=== PATIENT | male | born 1980 | race Caucasian/White ===

== ENCOUNTER 2022-12-15 17:59 | Emergency (ER) | payer BC ==
[2022-12-15] MEDS ORDERED: PANTOPRAZOLE 40 MG INJ ONE ×2 (18:26→21:22)
[2022-12-15] MEDS ORDERED: ONDANSETRON 4 MG/2 ML VIAL ONE ×2 (18:26→21:16)
[2022-12-15 18:45] LABS: Absolute Lymphocytes (CBC) 2.5 K/uL (0.7-4.9); Lymphocytes % 17.6 % (15.3-44.8); MCV 88.7 fL (80-100); RBC Red Blood Cell Count 5.19 M/uL (4.33-5.43)
[2022-12-15 18:45] LABS: Specific Gravity 1.026 (1.005-1.030); Urine Bacteria 20-50 /HPF (<20); Urine Bilirubin NEGATIVE (Negative); Urine Blood Trace (Negative); Urine Clarity Clear (Clear); Urine Color Yellow (Yellow); Urine Glucose NEGATIVE (Negative); Urine Mucus 3+ /HPF (None Seen); Urine Protein 1+ (Negative); Urine Urobilinogen 1+ (Normal); Urine pH 6.5 (5.0-7.0)
[2022-12-15 18:46] LABS: Protime INR 1.1
--- NOTE | 2022-12-15 18:49 | RAD REPORT ---
EXAM DESCRIPTION: RAD - Chest Single View - 12/15/2022 6:44 pm CLINICAL HISTORY: vomiting Chest pain. COMPARISON: <Comparisons> FINDINGS: Portable technique limits examination quality. The lungs are grossly clear. The heart is normal in size. No displaced fractures. IMPRESSION: No acute intrathoracic process suspected.
[2022-12-15 19:04] LABS: Bilirubin Total 0.5 mg/dL (0.2-1.0); Potassium 3.7 mEq/L (3.5-5.1); Troponin High Sensitivity 4.6 pg/mL (<58.9)
[2022-12-15] MEDS ORDERED: NA CHLORIDE 0.9% 50 ML ONE (19:50)
[2022-12-15] MEDS ORDERED: CEFTRIAXONE 1000 MG/VIAL ONE (19:50)
--- NOTE | 2022-12-15 19:52 | RAD REPORT ---
EXAM DESCRIPTION: US - Abdomen Exam Limited - 12/15/2022 7:43 pm CLINICAL HISTORY: EPIGASTRIC PAIN COMPARISON: No comparisons FINDINGS: The gallbladder demonstrates no gallstones. No pericholecystic fluid or gallbladder wall t hickening. The common bile duct is normal measuring 3 mm. The liver demonstrates no findings of intrahepatic biliary dilatation. IMPRESSION: Unremarkable examination.
--- NOTE | 2022-12-15 20:55 | RAD REPORT ---
EXAM DESCRIPTION: CTAbdomen Pelvis W Contrast - 12/15/2022 8:47 pm CLINICAL HISTORY: Abdominal pain. ABD PAIN COMPARISON: No comparisons TECHNIQUE: Biphasic CT imaging of the abdomen and pelvis was performed with 100 ml non-ionic IV cont rast. All CT scans are performed using dose optimization technique as appropriate and may include automated exposure control or mA/KV adjustment according to patient size. FINDINGS: The lung bases are clear. The liver, spleen, adrenal glands and kidneys are within normal limits. There is mild inflammation an d fluid surrounding the duodenal C-loop. The adjacent pancreas appears unremarkable. No bowel obstruction, free air, free fluid or abscess. The appendix is normal. No evidence of signi ficant lymphadenopathy. No suspicious bony findings. IMPRESSION: Mild inflammation and fluid is seen involving the duodenal C-loop. This may be related t o duodenitis or ulcer disease. Upper endoscopy may be helpful.
--- NOTE | 2022-12-15 21:10 | ER ---
Nurse's Notes [facility] Name: Colby Graham Age: 42 yrs Sex: Male : 1980 Arrival Date: 12/15/2022 Time: 17:59 Bed 8 Private MD: Diagnosis: Hematemesis;Epigastric pain Presentation: 12/15 17:59 Chief complaint: Patient states: patient come in by security guard. Complains of nausea/ db abdominal pain and vomiting since Wednesday after taking Naproxen for tooth pain. Coronavirus screen: Vaccine status: Patient reports being unvaccinated. Client denies travel out of the [place] in the last 14 days. At this time, the client does not indicate any symptoms associated with coronavirus-19. Ebola Screen: Patient negative for fever greater than or equal to 101.5 degrees Fahrenheit, and additional compatible Ebola Virus Disease symptoms Patient denies exposure to infectious person. Patient denies travel to an Ebola-affected area in the 21 days before illness onset. No symptoms or risks identified at this time. Initial Sepsis Screen: Does the patient meet any 2 criteria? No. Patient's initial sepsis screen is negative. Does the patient have a suspected source of infection? No. Patient's initial sepsis screen is negative. Risk Assessment: Do you want to hurt yourself or someone else? Patient reports no desire to harm self or others. Onset of symptoms was December 11, 2022. 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 uncomfortable, Behavior is cooperative, db anxious. Pain: Complains of pain in abdomen. GI: Abdomen is flat, non-distended, Reports nausea, vomiting. Historical: - Allergies: 18:13 PENICILLINS; db - Immunization history:: Adult Immunizations unknown. - Social history:: Smoking status: Patient reports the use of cigarette tobacco products, denies chronic smoking, but will smoke occasionally. Screenin:14 [facility] ED Fall Risk Assessment (Adult) History of falling in the last 3 months, db including since admission No falls in past 3 months (0 pts) Confusion or Disorientation No (0 pts) Intoxicated or Sedated No (0 pts) Impaired Gait No (0 pts) Mobility Assist Device Used No (0 pt) Altered Elimination No (0 pt) Score/Fall Risk Level 0 - 2 = Low Risk Oriented to surroundings, Maintained a safe environment. Abuse screen: Denies threats or abuse. Denies injuries from another. Nutritional screening: No deficits noted. Tuberculosis screening: No symptoms or risk factors identified. Assessment: 18:14 Reassessment: Patient appears in no apparent distress at this time. Patient and/or db family updated on plan of care and expected duration. Pain level reassessed. Patient is alert, oriented x 3, equal unlabored respirations, skin warm/dry/pink. see triage for initial assessment. 20:56 Reassessment: C/o abdominal pain 01/09, ERP notified. ll3 12/16 00:24 Reassessment: Patient appears in no apparent distress at this time. Patient and/or kl family updated on plan of care and expected duration. Pain level reassessed. Patient is alert, oriented x 3, equal unlabored respirations, skin warm/dry/pink. Patient states symptoms have improved. Vital Signs: 12/15 17:59 BP 145 / 84; Pulse 72; Resp 16; Temp 98.9(O); Pulse Ox 100% on R/A; Weight 80.74 kg; db Height 5 ft. 7 in. ; 18:30 BP 149 / 89; Pulse 76; Resp 16; Pulse Ox 100% on R/A; db 19:30 BP 168 / 92; Pulse 76; Resp 16; Pulse Ox 100% on R/A; ll3 20:56 BP 115 / 78; Pulse 60; Resp 16; Pulse Ox 96% on R/A; ll3 22:30 BP 120 / 83; Pulse 65; Resp 16; Pulse Ox 98% on R/A; ll3 12/16 00:00 BP 112 / 82; Pulse 66; Resp 17; Pulse Ox 97% on R/A; ll3 12/15 17:59 Body Mass Index 27.88 (80.74 kg, 170.18 cm) ED Course: 12/15 17:00 Arm band placed on Patient placed in an exam room. db 18:07 Patient arrived in ED. db 18:09 Luis Pete DO is Attending Physician. ms3 18:10 Aayush Carver PA is PHCP. cp 18:12 Triage completed. db 18:28 Inserted saline lock: 20 gauge in left antecubital area, using aseptic technique. Blood db collected. 18:40 Jennifer Joshi, RN is Primary Nurse. db 18:44 XRAY Chest (1 view) In Process Unspecified. EDMS 19:00 Patient has correct armband on for positive identification. Bed in low position. Call ll3 light in reach. Side rails up X 1. Adult w/ patient. 19:46 US Abdomen Limited In Process Unspecified. EDMS 20:13 Lactate w/ 2H reflex if indic. Sent. kl 20:49 CT Abd/Pelvis - IV Contrast Only In Process Unspecified. EDMS 21:17 initiated transfer to [facility], spoke with Miriam Tyler. wm 21:47 Pt accepted for transfer by Dr. Tafoya per Miriam Tyler. 12/16 00:24 No provider procedures requiring assistance completed. Patient transferred, IV remains kl in place. Administered Medications: 12/15 18:28 Drug: Ondansetron IVP 4 mg Route: IVP; Site: left antecubital; db 18:30 Drug: Pantoprazole IVP 40 mg Route: IVP; Site: left antecubital; db 20:56 Drug: Rocephin IV 1 grams Route: IV; Rate: calculated rate; Site: left antecubital; ll3 21:25 Follow up: Response: No adverse reaction; IV Status: Completed infusion; IV Intake: [id number] 21:14 Drug: morphine IVP or IV 4 mg Route: IVP; Infused Over: 4 mins; Site: left antecubital; ll3 22:04 Follow up: Response: No adverse reaction ll3 21:14 Drug: Ondansetron IVP 4 mg Route: IVP; Site: left antecubital; ll3 22:04 Follow up: Response: No adverse reaction ll3 21:25 Drug: Pantoprazole IV 8 mg/hr Route: IV; Rate: 25 ml/hr; Site: left antecubital; ll3 12/16 00:27 Follow up: IV Status: Infusion continued upon transfer; IV Intake: 100ml kl Medication: 00:24 VIS not applicable for this client. kl Intake: 12/15 21:25 IV: 50ml; Total: 50ml. ll3 12/16 00:27 IV: 100ml; Total: 150ml. kl Outcome: 12/15 21:10 ER care complete, transfer ordered by MD. deras 12/16 00:24 Transferred by ground EMS to [facility]. kl Condition: stable Discharge instructions given to patient, Instructed on the need for transfer, Demonstrated understanding of instructions. 00:27 Patient left the ED. kl Signatures: Dispatcher [employer] Latoya Schroeder, RN RN Aayush Do, ANGIE PA Luis Sung, DO ms3 [employer] Lynsea, RN RN 3 Jennifer Joshi RN RN db Monalisa Montano Corrections: (The following items were deleted from the chart) 00:19 12/15 21:17 Monalisa initiated transfer to [facility], spoke with Miriam pascal 12/16 00:20 12/15 21:47 Pt accepted for transfer by Dr. Lottie morley
--- NOTE | 2022-12-15 21:11 | EDPHYS ---
Physician Documentation [facility] Name: Colby Graham Age: 42 yrs Sex: Male : 1980 Arrival Date: 12/15/2022 Time: 17:59 Bed 8 Private MD: ED Physician Luis Pete HPI: 12/15 18:10 This 42 yrs old Male presents to ER via Unassigned with complaints of Abdominal Pain, ms3 Nausea/Vomiting. 18:10 The patient presents with abdominal pain in the epigastric area, in the upper abdomen. cp Onset: The symptoms/episode began/occurred 4 day(s) ago, and became worse yesterday. 18:10 The symptoms do not radiate. Associated signs and symptoms: Pertinent positives: chest cp pain, vomiting blood, dark colored stool. Severity of pain: in the emergency department the pain is unchanged despite EMS interventions. Patient reports he has been taking Naproxen for tooth pain. 18:10 The symptoms are described as constant. cp Historical: - Allergies: 18:13 PENICILLINS; db - Immunization history:: Adult Immunizations unknown. - Social history:: Smoking status: Patient reports the use of cigarette tobacco products, denies chronic smoking, but will smoke occasionally. ROS: 18:15 Constitutional: Negative for body aches, chills, fever, poor PO intake. cp 18:15 Eyes: Negative for injury, pain, redness, and discharge. cp 18:15 ENT: Negative for drainage from ear(s), ear pain, sore throat, difficulty swallowing, difficulty handling secretions. 18:15 Cardiovascular: Positive for chest pain, Negative for edema, palpitations. 18:15 Respiratory: Negative for cough, shortness of breath, wheezing. 18:15 Abdomen/GI: Positive for abdominal pain, nausea, vomiting, hematemesis, black/tarry stool. 18:15 : Negative for urinary symptoms, testicular pain 18:15 Neuro: Negative for altered mental status, dizziness, headache, numbness, syncope, weakness. 18:15 All other systems are negative. Exam: 18:20 Constitutional: The patient appears in no acute distress, alert, awake, cp non-diaphoretic, non-toxic, well developed, well nourished, uncomfortable. 18:20 Head/Face: Normocephalic, atraumatic. cp 18:20 Eyes: Periorbital structures: appear normal, Conjunctiva: normal, no exudate, no injection, Sclera: no appreciated abnormality, Lids and lashes: appear normal, bilaterally. 18:20 ENT: External ear(s): are unremarkable, Nose: is normal, Mouth: Lips: moist, Oral mucosa: pink and intact, moist, Posterior pharynx: is normal, airway is patent, no erythema, no exudate. 18:20 Neck: ROM/movement: is normal, is supple, without pain, no range of motions limitations. 18:20 Chest/axilla: Inspection: normal. 18:20 Cardiovascular: Rate: normal, Rhythm: regular, Edema: is not appreciated, JVD: is not appreciated. 18:20 Respiratory: the patient does not display signs of respiratory distress, Respirations: normal, no use of accessory muscles, no retractions, labored breathing, is not present, Breath sounds: are clear throughout, no decreased breath sounds, no stridor, no wheezing. 18:20 Abdomen/GI: Inspection: abdomen appears normal, Bowel sounds: active, all quadrants, Palpation: soft, in all quadrants, moderate abdominal tenderness, in the epigastric area, rebound tenderness, is not appreciated, involuntary guarding, is not appreciated. 18:20 Back: pain, is absent, ROM is normal. 18:20 Neuro: Orientation: to person, place \T\ time. Mentation: is normal, Cerebellar function: is grossly normal, Motor: moves all fours, strength is normal, Sensation: is normal. 19:55 ECG was reviewed by the Attending Physician. cp Vital Signs: 17:59 BP 145 / 84; Pulse 72; Resp 16; Temp 98.9(O); Pulse Ox 100% on R/A; Weight 80.74 kg; db Height 5 ft. 7 in. ; 18:30 BP 149 / 89; Pulse 76; Resp 16; Pulse Ox 100% on R/A; db 19:30 BP 168 / 92; Pulse 76; Resp 16; Pulse Ox 100% on R/A; ll3 20:56 BP 115 / 78; Pulse 60; Resp 16; Pulse Ox 96% on R/A; ll3 22:30 BP 120 / 83; Pulse 65; Resp 16; Pulse Ox 98% on R/A; ll3 12/16 00:00 BP 112 / 82; Pulse 66; Resp 17; Pulse Ox 97% on R/A; ll3 12/15 17:59 Body Mass Index 27.88 (80.74 kg, 170.18 cm) db MDM: 12/15 18:09 Patient medically screened. ms3 21:10 Data reviewed: vital signs, nurses notes, lab test result(s), EKG, radiologic studies, cp CT scan. 21:10 Consideration of Admission/Observation will transfer for GI services and managed care. cp Independent interpretation of the following test(s) in the Emergency Department EKG: See my EKG interpretation above X-Ray: My interpretation is chest image negative for infiltrates. Counseling: I had a detailed discussion with the patient and/or guardian regarding: the historical points, exam findings, and any diagnostic results supporting the discharge/admit diagnosis, lab results, radiology results, the need to transfer to another facility, for higher level of care. Response to treatment: the patient's symptoms have mildly improved after treatment. 21:47 ED course: consult with DR Tafoya \T\[facility] in [place] who will accept patient as cp transfer after discussion. 12/15 18:14 Order name: CBC with Diff; Complete Time: 19:28 cp 12/15 20:29 Interpretation: Normal except: WBC 14.50; NEUT A 10.4; MNA 1.5. cp 12/15 18:14 Order name: CMP; Complete Time: 19:28 cp 12/15 21:08 Interpretation: Normal except: NA 134. cp 12/15 18:14 Order name: Lipase; Complete Time: 19:28 cp 12/15 18:14 Order name: Urinalysis w/ reflexes; Complete Time: 19:28 cp 12/15 18:14 Order name: PT-INR; Complete Time: 19:28 cp 12/15 18:14 Order name: Troponin HS; Complete Time: 19:28 cp 12/15 18:48 Order name: Urine Culture EDVA 12/15 19:31 Order name: Lactate w/ 2H reflex if indic.; Complete Time: 21:05 cp 12/15 19:31 Order name: Blood Culture Adult (2) cp 12/15 21:31 Order name: SARS RAPID as7 12/15 18:14 Order name: US Abdomen Limited; Complete Time: 20:29 cp 12/15 20:29 Interpretation: Report reviewed. 12/15 18:14 Order name: XRAY Chest (1 view); Complete Time: 19:28 cp 12/15 19:29 Order name: CT Abd/Pelvis - IV Contrast Only; Complete Time: 21:05 12/15 18:14 Order name: EKG; Complete Time: 18:16 cp 12/15 18:14 Order name: IV Saline Lock; Complete Time: 18:35 cp 12/15 18:14 Order name: Labs collected and sent; Complete Time: 18:36 12/15 18:14 Order name: EKG - Nurse/Tech; Complete Time: 19:54 cp 12/15 21:05 Order name: NPO; Complete Time: 21:07 cp EC:55 Rate is 62 beats/min. Rhythm is regular. ND interval is normal. QRS interval is normal. cp QT interval is normal. T waves are Inverted in leads aVL, aVR. Interpreted by me. Reviewed by me. Administered Medications: 18:28 Drug: Ondansetron IVP 4 mg Route: IVP; Site: left antecubital; db 18:30 Drug: Pantoprazole IVP 40 mg Route: IVP; Site: left antecubital; db 20:56 Drug: Rocephin IV 1 grams Route: IV; Rate: calculated rate; Site: left antecubital; ll3 21:25 Follow up: Response: No adverse reaction; IV Status: Completed infusion; IV Intake: [id number] 21:14 Drug: morphine IVP or IV 4 mg Route: IVP; Infused Over: 4 mins; Site: left antecubital; ll3 22:04 Follow up: Response: No adverse reaction 3 21:14 Drug: Ondansetron IVP 4 mg Route: IVP; Site: left antecubital; ll3 22:04 Follow up: Response: No adverse reaction 3 21:25 Drug: Pantoprazole IV 8 mg/hr Route: IV; Rate: 25 ml/hr; Site: left antecubital; ll3 12/16 00:27 Follow up: IV Status: Infusion continued upon transfer; IV Intake: 100ml kl Disposition: 12/15 18:10 Co-signature as Attending Physician, Luis Pete DO PA/RESERVATION CLERK's history reviewed, patient ms3 interviewed, and examined. HPI: 42-year-old male presents for nausea and vomiting that began 4 days prior to arrival. Patient states his pain is located in the epigastric region of his abdomen. Patient states the pain began after taking ibuprofen and Aleve after fracturing a tooth My personal exam of patient reveals: On exam patient is alert and orient x4, no apparent distress, nontoxic-appearing. Heart rate and rhythm are regular without murmurs rubs or gallops. Lungs are clear to auscultation bilaterally. Abdomen with mild epigastric tenderness, bowel sounds present. Skin is dry and without rashes. 12/16 07:49 PA/RESERVATION CLERK's history reviewed, patient interviewed, and examined. I agree with assessment ms3 and care plan and confirm the diagnosis (es) above. Disposition Summary: 12/15/22 21:10 Transfer Ordered Transfer Location: [facility] cp Reason: Higher level of care cp Condition: Stable cp Problem: new cp Symptoms: have improved cp Accepting Physician: Doctor(12/16/22 00:27) nava Diagnosis - Hematemesis cp - Epigastric pain cp Forms: - Medication Reconciliation Form cp - SBAR form cp Signatures: Dispatcher [employer] EDLatoya Glover RN RN Aayush Do PA PA cp Sims, Marcus, DO DO ms3 Raymundo Ramirez RN RN ll3 Jennifer Joshi RN RN db Corrections: (The following items were deleted from the chart) 00:27 12/15 21:10 Doctor augusta vick 12/16 22:49 12/15 18:10 Onset: The symptoms/episode began/occurred yesterday, and became worse cp today, cp
[2022-12-15] MEDS ORDERED: MORPHINE 4 MG/ML SYR ONE (21:16)
[2022-12-15] MEDS ORDERED: NA CHLORIDE 0.9% 250 ML ONE (21:23)
[2022-12-15 22:41] LABS: SARS-CoV-2 Antigen Rapid Res Negative (Negative)
[2022-12-16 01:16] VITALS: TEMP 98.9
[2022-12-16 01:24] VITALS: BP 112/82; O2SAT 97
--- NOTE | 2022-12-16 11:46 | EKG ---
Test Date: 2022-12-15 Test Time: 19:51:29 Stock Checker: MEASUREMENT RESULTS: Intervals: Rate: 62 KS: 154 QRSD: 86 QT: 408 QTc: 414 [place]: P: 77 KS: 154 QRS: 87 T: 67 INTERPRETIVE STATEMENTS: Normal sinus rhythm Normal ECG No previous ECG available for comparison Electronically Signed On 12-16-22 11:44:36 CDT by Cristian Wright
== END 2022-12-16 00:27 | disposition short-term general hospital (02) ==
LOC: ER 17:59
DX: R10.13 Epigastric pain (principal); K92.0 Hematemesis; F17.210 Nicotine dependence, cigarettes, uncomplicated; Z88.0 Allergy status to penicillin
CPT/HCPCS: 93005; 87040 ×2; 87088; 85025; 81001; 87086; 36415; 85610; 83605; 84484; 83690; 80053; 74177; 71045; 76705; 87811; Q9967; C9113 ×2; J2405 ×2; J0696; J7050